=== PATIENT | male | born 1945 | race Caucasian/White ===

== ENCOUNTER 2017-01-06 15:39 | Emergency (ER) | payer MEDICARE, BC ==
[2017-01-06 16:00] VITALS: RESP 20; TEMP 97.5
[2017-01-06] MEDS ORDERED: APAP/HYDROCODONE 325/5 TAB PO ONE (16:53)
[2017-01-06] MEDS ORDERED: APAP/HYDROCODONE 325/5 TAB ONE (17:00)
[2017-01-06 17:33] VITALS: BP 137/104; PULSE 80; O2SAT 94
== END 2017-01-06 17:20 | disposition home or self-care (01) | DRG 185 ==
LOC: ED 15:39
DX: S22.42XA Multiple fractures of ribs, left side, initial encounter for closed fracture (principal); W18.30XA Fall on same level, unspecified, initial encounter
CPT/HCPCS: 71101; 99283

== ENCOUNTER 2018-01-30 02:34 | Emergency (ER) | payer MEDICARE, BC, OTHER ==
[2018-01-30 02:52] VITALS: RESP 18
[2018-01-30 03:38] LABS: INR 3.04 (0.86-1.12)
[2018-01-30] MEDS ORDERED: PROPARACAINE HCL 0.5% OPHTHALMIC SOL ONE (04:31)
[2018-01-30] MEDS ORDERED: PROPARACAINE HCL 0.5% OPHTHALMIC SOL OP ONE (04:37)
[2018-01-30] MEDS ORDERED: METOPROLOL TARTRATE 5 MG/5 ML SOL IV ONE ×2 (04:41→04:42)
[2018-01-30 04:57] VITALS: TEMP 97.6
[2018-01-30 05:37] VITALS: PULSE 79
[2018-01-30 05:38] VITALS: BP 180/102; O2SAT 95
== END 2018-01-30 05:30 | disposition home or self-care (01) | DRG 125 ==
LOC: ED 02:34
DX: S01.112A Laceration without foreign body of left eyelid and periocular area, initial encounter (principal); Z79.01 Long term (current) use of anticoagulants
CPT/HCPCS: 36415; 70450; 85610; 99283; A9270-GY; J3490

== ENCOUNTER 2018-03-08 19:21 | Inpatient (IN) | payer OTHER, MEDICARE, BC ==
[2018-03-08 20:03] LABS: BASOPHILS % (AUTO) 1 % (0-3); EOSINOPHILS % (AUTO) 0 % (0-9); HEMATOCRIT 39 % (39-53); HEMOGLOBIN 13.5 gm/dl (13.5-17.7); MEAN CORPUSCULAR HEMOGLOBIN 31.3 pg (27.0-32.0); MEAN CORPUSCULAR VOLUME 89 fL (80-100); MONOCYTES % (AUTO) 9.3 % (0-12); NEUTROPHILS % (AUTO) 82.6 % (37-80)
[2018-03-08 20:21] LABS: ALBUMIN 2.8 gm/dl (3.4-5.0); BILIRUBIN,TOTAL 0.4 mg/dl (0.2-1.0); CALCIUM 8.4 mg/dl (8.5-10.1); CARBON DIOXIDE 29.2 mEq/L (21-32); CREATININE 2.01 mg/dl (0.80-1.30); POTASSIUM 3.9 mMol/L (3.5-5.1); TOTAL PROTEIN 7.3 gm/dl (6.4-8.2); TROP I 0.039 ng/ml (0.000-0.056)
[2018-03-08 21:11] LABS: INR 2.73 (0.86-1.12)
[2018-03-08] MEDS ORDERED: FUROSEMIDE 20mg SOL IV ONE ×2 (21:11→22:30)
[2018-03-08] MEDS ORDERED: FUROSEMIDE 20mg SOL ONE (21:16)
[2018-03-08] MEDS ORDERED: FUROSEMIDE 20 MG TAB PO PRN (21:21)
[2018-03-08] MEDS ORDERED: ALBUTEROL HFA 60 PUFF/INHALER INH PRN (21:21)
[2018-03-08] MEDS: SIMVASTATIN 20 MG TAB PO SCH (22:34)
[2018-03-08] MEDS: LISINOPRIL 20 MG TAB PO SCH (22:34)
[2018-03-08] MEDS: METOPROLOL TARTRATE 50 MG TAB PO SCH (22:34)
[2018-03-08] MEDS: CITALOPRAM 20 MG TAB PO SCH (22:35)
[2018-03-08] MEDS: DIGOXIN 0.125 MG TAB PO SCH (22:35)
[2018-03-08] MEDS: LORATADINE 10 MG TAB PO SCH (22:35)
[2018-03-08] MEDS: INSULIN GLARGINE, RECOMBINAN 100 U/ML SOL SC SCH (22:39)
[2018-03-08] MEDS: SODIUM CHLORIDE 0.9% 1000ML 1,000 ML IV SCH (22:41)
[2018-03-09 07:23] LABS: BASOPHILS % (AUTO) 1 % (0-3); EOSINOPHILS % (AUTO) 1 % (0-9); HEMATOCRIT 39 % (39-53); HEMOGLOBIN 13.5 gm/dl (13.5-17.7); LYMPHOCYTES % (AUTO) 8.55 % (10-50); MEAN CORPUSCULAR HEMOGLOBIN 31.9 pg (27.0-32.0); MEAN CORPUSCULAR VOLUME 91 fL (80-100); MONOCYTES % (AUTO) 13.6 % (0-12); NEUTROPHILS % (AUTO) 76.3 % (37-80)
[2018-03-09 07:35] LABS: APPEARANCE,URINE Clear; BILIRUBIN,URINE NEGATIVE (NEGATIVE); COLOR,URINE Yellow; GLUCOSE, URINE (UA) NEGATIVE (NEGATIVE); KETONES,URINE NEGATIVE (NEGATIVE); LEUKOCYTE ESTERASE ,URINE NEGATIVE (NEGATIVE); NITRATE,URINE NEGATIVE (NEGATIVE); OCCULT BLOOD,URINE 2+ (NEG-TRACE); UROBILINOGEN,URINE 0.2 (0.2-1.0 EU)
[2018-03-09 07:36] LABS: DIGOXIN 1.3 ng/ml (0.9-2.0); TROP I 0.067 ng/ml (0.000-0.056)
[2018-03-09 07:54] LABS: BACTERIA TRACE (< 1+); CRYSTALS NEGATIVE (0-3 AVE/HPF); EPITHELIAL CELLS 0-1 (SQUAMOUS); WBC,URINE NEGATIVE (0-5AV/HPF)
[2018-03-09] MEDS ORDERED: METFORMIN HYDROCHLORIDE 500 MG TAB PO SCH (09:00)
[2018-03-09] MEDS ORDERED: MULTI INGREDIENT TOP SCH (09:00)
[2018-03-09] MEDS ORDERED: FUROSEMIDE 40 MG TAB PO SCH (09:00)
[2018-03-09] MEDS: ASPIRIN 81 MG CHEWABLE CTB PO SCH (09:40)
[2018-03-09] MEDS: HYDRALAZINE HCL 25 MG TAB PO SCH ×3 (09:41→21:25)
[2018-03-09] MEDS: METOPROLOL TARTRATE 50 MG TAB PO SCH ×2 (09:42→21:26)
[2018-03-09] MEDS: FUROSEMIDE 20 MG TAB PO SCH (09:42)
[2018-03-09] MEDS: LISINOPRIL 20 MG TAB PO SCH ×2 (09:43→21:26)
[2018-03-09] MEDS: FUROSEMIDE 40 MG TAB PO SCH (09:44)
[2018-03-09] MEDS ORDERED: MULTI INGREDIENT TOP PRN (09:54)
[2018-03-09] MEDS: INSULIN GLARGINE, RECOMBINAN 100 U/ML SOL SC SCH ×2 (10:55→21:28)
[2018-03-09] MEDS: TIOTROPIUM BROMIDE 18 MCG CAP INH SCH (10:55)
[2018-03-09] MEDS: SODIUM CHLORIDE 0.9% 1000ML 1,000 ML IV SCH (14:34)
[2018-03-09] MEDS ORDERED: WARFARIN SODIUM 5 MG TAB PO SCH (17:00)
[2018-03-09] MEDS: WARFARIN SODIUM 7.5 MG TAB PO SCH (17:42)
[2018-03-09] MEDS: FISH OIL 500 MG CAP PO SCH (21:23)
[2018-03-09] MEDS: SODIUM CHLORIDE 0.9% FLUSH 10 ML SOL IV SCH (21:23)
[2018-03-09] MEDS: CITALOPRAM 20 MG TAB PO SCH (21:25)
[2018-03-09] MEDS: LORATADINE 10 MG TAB PO SCH (21:25)
[2018-03-09] MEDS: SIMVASTATIN 20 MG TAB PO SCH (21:26)
[2018-03-09] MEDS: DIGOXIN 0.125 MG TAB PO SCH (21:27)
[2018-03-10] MEDS: SODIUM CHLORIDE 0.9% FLUSH 10 ML SOL IV SCH ×3 (06:18→20:46)
[2018-03-10 07:27] LABS: INR 2.2 (0.86-1.12)
[2018-03-10 07:33] LABS: CALCIUM 8.5 mg/dl (8.5-10.1); CARBON DIOXIDE 28.3 mEq/L (21-32); CREATININE 1.83 mg/dl (0.80-1.30); POTASSIUM 3.6 mMol/L (3.5-5.1); TROP I 0.084 ng/ml (0.000-0.056)
[2018-03-10] MEDS: HYDRALAZINE HCL 25 MG TAB PO SCH ×3 (08:21→20:46)
[2018-03-10] MEDS: ASPIRIN 81 MG CHEWABLE CTB PO SCH (08:21)
[2018-03-10] MEDS: METOPROLOL TARTRATE 50 MG TAB PO SCH ×2 (08:21→20:48)
[2018-03-10] MEDS: INSULIN GLARGINE, RECOMBINAN 100 U/ML SOL SC SCH ×2 (08:22→20:49)
[2018-03-10] MEDS: LISINOPRIL 20 MG TAB PO SCH ×2 (08:23→20:47)
[2018-03-10] MEDS: TIOTROPIUM BROMIDE 18 MCG CAP INH SCH (09:53)
[2018-03-10] MEDS: AMLODIPINE 5 MG TAB PO SCH (09:55)
[2018-03-10] MEDS: FUROSEMIDE 40 MG TAB PO SCH (10:05)
[2018-03-10] MEDS ORDERED: AMLODIPINE 5 MG TAB PO ONE ×2 (13:46→16:49)
[2018-03-10] MEDS: FUROSEMIDE 20 MG TAB PO SCH (13:57)
[2018-03-10] MEDS: WARFARIN SODIUM 7.5 MG TAB PO SCH (17:17)
[2018-03-10] MEDS: FISH OIL 500 MG CAP PO SCH (20:46)
[2018-03-10] MEDS: DIGOXIN 0.125 MG TAB PO SCH (20:47)
[2018-03-10] MEDS: SIMVASTATIN 20 MG TAB PO SCH (20:48)
[2018-03-10] MEDS: CITALOPRAM 20 MG TAB PO SCH (20:48)
[2018-03-10] MEDS: LORATADINE 10 MG TAB PO SCH (20:48)
[2018-03-11] MEDS: SODIUM CHLORIDE 0.9% FLUSH 10 ML SOL IV SCH ×3 (06:36→21:22)
[2018-03-11] MEDS: FUROSEMIDE 40 MG TAB PO SCH (09:55)
[2018-03-11] MEDS: HYDRALAZINE HCL 25 MG TAB PO SCH ×3 (09:55→21:34)
[2018-03-11] MEDS: INSULIN GLARGINE, RECOMBINAN 100 U/ML SOL SC SCH ×3 (09:56→21:47)
[2018-03-11] MEDS: TIOTROPIUM BROMIDE 18 MCG CAP INH SCH (09:56)
[2018-03-11] MEDS: METOPROLOL TARTRATE 50 MG TAB PO SCH ×2 (09:58→21:22)
[2018-03-11] MEDS: LISINOPRIL 20 MG TAB PO SCH ×2 (09:58→21:19)
[2018-03-11] MEDS: AMLODIPINE 5 MG TAB PO SCH ×2 (09:59→20:31)
[2018-03-11] MEDS: ASPIRIN 81 MG CHEWABLE CTB PO SCH (09:59)
[2018-03-11] MEDS ORDERED: TRAMADOL HYDROCHLORIDE 50 MG TAB PO PRN (18:23)
[2018-03-11] MEDS: WARFARIN SODIUM 7.5 MG TAB PO SCH (18:53)
[2018-03-11 20:03] LABS: BASOPHILS % (AUTO) 1 % (0-3); EOSINOPHILS % (AUTO) 0 % (0-9); HEMATOCRIT 43 % (39-53); LYMPHOCYTES % (AUTO) 7.27 % (10-50); MEAN CORPUSCULAR HEMOGLOBIN 30.9 pg (27.0-32.0); MEAN CORPUSCULAR HGB CONC 34.7 gm/dl (32.0-36.0); MEAN CORPUSCULAR VOLUME 89 fL (80-100); MONOCYTES % (AUTO) 12.3 % (0-12); NEUTROPHILS % (AUTO) 79.4 % (37-80)
[2018-03-11 20:15] LABS: CALCIUM 8.5 mg/dl (8.5-10.1); CREATININE 2.05 mg/dl (0.80-1.30)
[2018-03-11 20:22] LABS: POTASSIUM 3.8 mMol/L (3.5-5.1)
[2018-03-11 20:38] LABS: APPEARANCE,URINE Clear; BILIRUBIN,URINE NEGATIVE (NEGATIVE); GLUCOSE, URINE (UA) TRACE (NEGATIVE); KETONES,URINE NEGATIVE (NEGATIVE); LEUKOCYTE ESTERASE ,URINE NEGATIVE (NEGATIVE); NITRATE,URINE NEGATIVE (NEGATIVE); OCCULT BLOOD,URINE 2+ (NEG-TRACE); PH,URINE 6.5
[2018-03-11 20:52] LABS: COLOR,URINE Dark Yellow; CRYSTALS NEGATIVE (0-3 AVE/HPF); EPITHELIAL CELLS 0-2 (SQUAMOUS)
[2018-03-11 20:53] LABS: BACTERIA TRACE (< 1+)
[2018-03-11] MEDS: DIGOXIN 0.125 MG TAB PO SCH (21:19)
[2018-03-11] MEDS: FISH OIL 500 MG CAP PO SCH (21:21)
[2018-03-11] MEDS: CITALOPRAM 20 MG TAB PO SCH (21:21)
[2018-03-11] MEDS: SIMVASTATIN 20 MG TAB PO SCH (21:21)
[2018-03-11] MEDS: LORATADINE 10 MG TAB PO SCH (21:21)
[2018-03-11] MEDS: ACETAMINOPHEN 500 MG 500 MG TAB PO SCH (21:24)
[2018-03-11] MEDS ORDERED: SODIUM CHLORIDE 0.9% 500 ML 500 ML IV ONE (22:00)
[2018-03-12] MEDS: SODIUM CHLORIDE 0.9% FLUSH 10 ML SOL IV SCH ×3 (04:30→20:35)
[2018-03-12 08:05] LABS: CALCIUM 8.7 mg/dl (8.5-10.1); CREATININE 2.06 mg/dl (0.80-1.30)
[2018-03-12 08:06] LABS: BASOPHILS % (AUTO) 1 % (0-3); EOSINOPHILS % (AUTO) 1 % (0-9); HEMATOCRIT 42 % (39-53); MEAN CORPUSCULAR HEMOGLOBIN 32.1 pg (27.0-32.0); MEAN CORPUSCULAR HGB CONC 35.9 gm/dl (32.0-36.0); MEAN CORPUSCULAR VOLUME 90 fL (80-100); MONOCYTES % (AUTO) 11.3 % (0-12); NEUTROPHILS % (AUTO) 75.9 % (37-80)
[2018-03-12] MEDS: HYDRALAZINE HCL 25 MG TAB PO SCH ×4 (10:08→20:45)
[2018-03-12] MEDS: ASPIRIN 81 MG CHEWABLE CTB PO SCH (10:09)
[2018-03-12] MEDS: METOPROLOL TARTRATE 50 MG TAB PO SCH ×2 (10:10→20:34)
[2018-03-12] MEDS: FUROSEMIDE 40 MG TAB PO SCH ×2 (10:10)
[2018-03-12] MEDS: AMLODIPINE 5 MG TAB PO SCH (10:11)
[2018-03-12] MEDS: LISINOPRIL 20 MG TAB PO SCH ×2 (10:13→20:35)
[2018-03-12] MEDS: TIOTROPIUM BROMIDE 18 MCG CAP INH SCH (10:14)
[2018-03-12] MEDS: ACETAMINOPHEN 500 MG 500 MG TAB PO SCH ×3 (10:20→20:35)
[2018-03-12] MEDS: INSULIN GLARGINE, RECOMBINAN 100 U/ML SOL SC SCH ×2 (10:25→20:45)
[2018-03-12] MEDS ORDERED: MAGNESIUM HYDROXIDE 30 ML SUS PO PRN (12:35)
[2018-03-12] MEDS ORDERED: HYDRALAZINE HYDROCHLORIDE 10 MG TAB ONE (14:46)
[2018-03-12] MEDS ORDERED: NOVOLOG FLEXPEN SC SCH (16:30)
[2018-03-12] MEDS: WARFARIN SODIUM 7.5 MG TAB PO SCH (18:03)
[2018-03-12] MEDS: NOVOLOG FLEXPEN SC SCH ×2 (18:04→20:44)
[2018-03-12] MEDS: LORATADINE 10 MG TAB PO SCH (20:34)
[2018-03-12] MEDS: FISH OIL 500 MG CAP PO SCH (20:35)
[2018-03-12] MEDS: DIGOXIN 0.125 MG TAB PO SCH (20:36)
[2018-03-12] MEDS: SIMVASTATIN 20 MG TAB PO SCH (20:36)
[2018-03-12] MEDS: CITALOPRAM 20 MG TAB PO SCH (20:38)
[2018-03-13] MEDS: SODIUM CHLORIDE 0.9% FLUSH 10 ML SOL IV SCH ×3 (04:50→20:37)
[2018-03-13] MEDS: NOVOLOG FLEXPEN SC SCH ×4 (06:35→20:37)
[2018-03-13 08:03] LABS: BASOPHILS % (AUTO) 1 % (0-3); EOSINOPHILS % (AUTO) 1 % (0-9); HEMATOCRIT 40 % (39-53); MEAN CORPUSCULAR HEMOGLOBIN 31.1 pg (27.0-32.0); MEAN CORPUSCULAR HGB CONC 34.9 gm/dl (32.0-36.0); MEAN CORPUSCULAR VOLUME 89 fL (80-100); MONOCYTES % (AUTO) 12.6 % (0-12); NEUTROPHILS % (AUTO) 74.3 % (37-80)
[2018-03-13 08:10] LABS: CALCIUM 8.5 mg/dl (8.5-10.1); CARBON DIOXIDE 26.1 mEq/L (21-32); CREATININE 2.11 mg/dl (0.80-1.30); POTASSIUM 4.1 mMol/L (3.5-5.1)
[2018-03-13 08:21] LABS: INR 2.47 (0.86-1.12)
[2018-03-13 08:53] LABS: HEMOGLOBIN A1C 7.9 % (4.8-6.0)
[2018-03-13] MEDS: ASPIRIN 81 MG CHEWABLE CTB PO SCH (08:55)
[2018-03-13] MEDS: METOPROLOL TARTRATE 50 MG TAB PO SCH (08:56)
[2018-03-13] MEDS: TIOTROPIUM BROMIDE 18 MCG CAP INH SCH (08:57)
[2018-03-13] MEDS: LISINOPRIL 20 MG TAB PO SCH ×2 (08:58→20:36)
[2018-03-13] MEDS: FUROSEMIDE 40 MG TAB PO SCH (09:00)
[2018-03-13] MEDS: AMLODIPINE 5 MG TAB PO SCH (09:00)
[2018-03-13] MEDS: HYDRALAZINE HCL 25 MG TAB PO SCH ×5 (09:01→20:37)
[2018-03-13] MEDS: ACETAMINOPHEN 500 MG 500 MG TAB PO SCH ×3 (09:04→20:37)
[2018-03-13] MEDS: INSULIN GLARGINE, RECOMBINAN 100 U/ML SOL SC SCH ×2 (09:04→20:37)
[2018-03-13] MEDS: WARFARIN SODIUM 7.5 MG TAB PO SCH (17:45)
[2018-03-13] MEDS: CARVEDILOL 3.125 MG TAB PO SCH (17:47)
[2018-03-13] MEDS: LORATADINE 10 MG TAB PO SCH (20:35)
[2018-03-13] MEDS: SIMVASTATIN 20 MG TAB PO SCH (20:36)
[2018-03-13] MEDS: DIGOXIN 0.125 MG TAB PO SCH (20:36)
[2018-03-13] MEDS: CITALOPRAM 20 MG TAB PO SCH (20:36)
[2018-03-13] MEDS: FISH OIL 500 MG CAP PO SCH (20:37)
[2018-03-14] MEDS: SODIUM CHLORIDE 0.9% FLUSH 10 ML SOL IV SCH ×3 (04:46→21:13)
[2018-03-14] MEDS: NOVOLOG FLEXPEN SC SCH ×4 (06:21→21:16)
[2018-03-14 07:36] LABS: INR 2.55 (0.86-1.12)
[2018-03-14] MEDS: FUROSEMIDE 40 MG TAB PO SCH (09:05)
[2018-03-14] MEDS: TIOTROPIUM BROMIDE 18 MCG CAP INH SCH (09:05)
[2018-03-14] MEDS: AMLODIPINE 5 MG TAB PO SCH (09:05)
[2018-03-14] MEDS: HYDRALAZINE HCL 25 MG TAB PO SCH ×4 (09:07→21:03)
[2018-03-14] MEDS: ASPIRIN 81 MG CHEWABLE CTB PO SCH (09:08)
[2018-03-14] MEDS: ACETAMINOPHEN 500 MG 500 MG TAB PO SCH ×3 (09:10→21:05)
[2018-03-14] MEDS: CARVEDILOL 3.125 MG TAB PO SCH (09:10)
[2018-03-14] MEDS: INSULIN GLARGINE, RECOMBINAN 100 U/ML SOL SC SCH ×2 (09:13→21:19)
[2018-03-14 09:25] VITALS: RESP 20
[2018-03-14] MEDS: LISINOPRIL 20 MG TAB PO SCH (10:51)
[2018-03-14] MEDS ORDERED: WARFARIN SODIUM 5 MG TAB PO SCH (17:00)
[2018-03-14] MEDS: CARVEDILOL 12.5 MG TAB PO SCH (17:37)
[2018-03-14] MEDS: LORATADINE 10 MG TAB PO SCH ×2 (21:03→21:11)
[2018-03-14] MEDS: FISH OIL 500 MG CAP PO SCH (21:03)
[2018-03-14] MEDS: CITALOPRAM 20 MG TAB PO SCH (21:03)
[2018-03-14] MEDS: SIMVASTATIN 20 MG TAB PO SCH (21:05)
[2018-03-14] MEDS: DIGOXIN 0.125 MG TAB PO SCH (21:06)
[2018-03-15] MEDS: NOVOLOG FLEXPEN SC SCH ×2 (06:48→12:03)
[2018-03-15] MEDS: SODIUM CHLORIDE 0.9% FLUSH 10 ML SOL IV SCH ×2 (06:52→13:07)
[2018-03-15 07:19] LABS: CALCIUM 8.8 mg/dl (8.5-10.1); CARBON DIOXIDE 26.4 mEq/L (21-32); CREATININE 2.05 mg/dl (0.80-1.30); POTASSIUM 4.3 mMol/L (3.5-5.1)
[2018-03-15 07:34] LABS: INR 2.43 (0.86-1.12)
[2018-03-15 08:32] VITALS: BP 147/90; PULSE 77; TEMP 97.4; O2SAT 97
[2018-03-15] MEDS: ASPIRIN 81 MG CHEWABLE CTB PO SCH (08:34)
[2018-03-15] MEDS: FUROSEMIDE 40 MG TAB PO SCH (08:35)
[2018-03-15] MEDS: CARVEDILOL 12.5 MG TAB PO SCH (08:35)
[2018-03-15] MEDS: AMLODIPINE 5 MG TAB PO SCH (08:35)
[2018-03-15] MEDS: HYDRALAZINE HCL 25 MG TAB PO SCH ×2 (08:35→13:06)
[2018-03-15] MEDS: ACETAMINOPHEN 500 MG 500 MG TAB PO SCH ×2 (08:36→13:55)
[2018-03-15] MEDS: TIOTROPIUM BROMIDE 18 MCG CAP INH SCH (08:36)
[2018-03-15] MEDS: INSULIN GLARGINE, RECOMBINAN 100 U/ML SOL SC SCH (08:37)
== END 2018-03-15 16:20 | disposition home or self-care (01) | DRG 946 ==
LOC: ED 19:21 → ACUTE CARE 21:07
PROVIDERS: ADMIT Family Medicine; ATTEND Family Medicine
PROC: F01L5YZ Range of Motion and Joint Integrity Assessment of Musculoskeletal System - Lower Back / Lower Extremity using Other Equipment (ICD-10-PCS; principal; 2018-03-09)
PROC: F01ZDFZ Gait and/or Balance Assessment using Assistive, Adaptive, Supportive or Protective Equipment (ICD-10-PCS; 2018-03-09)
PROC: F01ZBFZ Bed Mobility Assessment using Assistive, Adaptive, Supportive or Protective Equipment (ICD-10-PCS; 2018-03-09)
DX: R53.1 Weakness (principal); I50.9 Heart failure, unspecified; I48.91 Unspecified atrial fibrillation; E83.51 Hypocalcemia; D72.829 Elevated white blood cell count, unspecified; E11.9 Type 2 diabetes mellitus without complications; Z79.01 Long term (current) use of anticoagulants; Z79.4 Long term (current) use of insulin; I99.9 Unspecified disorder of circulatory system; I10 Essential (primary) hypertension; E78.5 Hyperlipidemia, unspecified; J44.9 Chronic obstructive pulmonary disease, unspecified; I73.9 Peripheral vascular disease, unspecified
CPT/HCPCS: 36415; 71045; 80048; 80053; 80162; 81001; 82550; 82962; 83036; 83880; 84484; 85025; 85610; 85651; 93005; 93012; 93306; 93925; 99222; 99283; J1817; J1940; A9270; A9270-GY; J1815

== ENCOUNTER 2018-07-31 20:14 | Emergency (ER) | payer MEDICARE, BC, OTHER ==
[2018-07-31] MEDS: SODIUM CHLORIDE 0.9% FLUSH 10 ML SOL IV PRN ×2 (20:20→23:00)
[2018-07-31] MEDS ORDERED: ALBUTEROL/IPRATROPIUM 1 VIAL SOL INH ONE (20:20)
[2018-07-31] MEDS ORDERED: ALBUTEROL/IPRATROPIUM 1 VIAL SOL ONE (20:20)
[2018-07-31] MEDS ORDERED: LORAZEPAM 2 MG/ML SOL ONE ×2 (20:22→21:25)
[2018-07-31] MEDS: LORAZEPAM 2 MG/ML 10ML MDV 2 MG/ML VIAL IV PRN ×2 (20:25→21:33)
[2018-07-31] MEDS: EPINEPHRINE HCL 0.1 MG/ML SOL IV PRN ×3 (20:30→20:44)
[2018-07-31 20:59] LABS: BASOPHILS % (AUTO) 2 % (0-3); EOSINOPHILS % (AUTO) 2 % (0-9); HEMATOCRIT 45 % (39-53); HEMOGLOBIN 14.5 gm/dl (13.5-17.7); LYMPHOCYTES % (AUTO) 29.7 % (10-50); MEAN CORPUSCULAR HEMOGLOBIN 31.5 pg (27.0-32.0); MEAN CORPUSCULAR HGB CONC 32.2 gm/dl (32.0-36.0); MEAN CORPUSCULAR VOLUME 98 fL (80-100); MONOCYTES % (AUTO) 8.4 % (0-12); NEUTROPHILS % (AUTO) 58.3 % (37-80)
[2018-07-31] MEDS ORDERED: FUROSEMIDE 40 MG SOL IV ONE (21:00)
[2018-07-31 21:10] LABS: ALBUMIN 2.9 gm/dl (3.4-5.0); BILIRUBIN,TOTAL 0.7 mg/dl (0.2-1.0); CALCIUM 7.7 mg/dl (8.5-10.1); CARBON DIOXIDE 24.2 mEq/L (21-32); CREATININE 2.57 mg/dl (0.80-1.30); POTASSIUM 4.6 mMol/L (3.5-5.1)
[2018-07-31] MEDS ORDERED: FUROSEMIDE 100 MG SOL ONE (21:10)
[2018-07-31 21:30] LABS: TOTAL PROTEIN 7.8 gm/dl (6.4-8.2)
[2018-07-31 21:32] LABS: INR 4.64 (0.86-1.12)
[2018-07-31] MEDS ORDERED: SODIUM CHLORIDE 0.9% 1000ML 1,000 ML IV ONE (21:50)
[2018-08-01 05:27] VITALS: BP 134/63; PULSE 57; RESP 25; TEMP 98.2; O2SAT 87
[2018-08-01] MEDS ORDERED: EPINEPHRINE 1:10,000 PREFILL 0.1 MG/ML SOL ONE (05:42)
== END 2018-07-31 23:10 | disposition short-term general hospital (02) | DRG 298 ==
LOC: ED 20:14
DX: I46.9 Cardiac arrest, cause unspecified (principal)
CPT/HCPCS: 36415; 71045; 80053; 84484; 85025; 85610; 92950; 93005; 96365; 96374; 96375; 99291; 99292; J1940; J2060

== ENCOUNTER 2018-09-26 19:58 | Emergency (ER) | payer MEDICARE, BC, OTHER ==
[2018-09-26] MEDS ORDERED: ALBUTEROL/IPRATROPIUM 1 VIAL SOL ONE (20:02)
[2018-09-26] MEDS ORDERED: SOLUMEDROL 125 MG/2 ML 125 MG/2 ML PDS ONE (20:20)
[2018-09-26] MEDS ORDERED: SOLUMEDROL 125 MG/2 ML 125 MG/2 ML PDS IV ONE (20:22)
[2018-09-26] MEDS ORDERED: SODIUM CHLORIDE 0.9% FLUSH 10 ML SOL IV PRN (20:23)
[2018-09-26 20:25] LABS: ABG PH 7.41 (7.35-7.45)
[2018-09-26] MEDS ORDERED: LORAZEPAM 2 MG/ML SOL IV ONE (20:31)
[2018-09-26 20:32] LABS: BASOPHILS % (AUTO) 1 % (0-3); EOSINOPHILS % (AUTO) 2 % (0-9); HEMATOCRIT 43 % (39-53); HEMOGLOBIN 13.7 gm/dl (13.5-17.7); LYMPHOCYTES % (AUTO) 10.1 % (10-50); MEAN CORPUSCULAR HEMOGLOBIN 29.6 pg (27.0-32.0); MEAN CORPUSCULAR HGB CONC 31.9 gm/dl (32.0-36.0); MEAN CORPUSCULAR VOLUME 93 fL (80-100); NEUTROPHILS % (AUTO) 79.2 % (37-80)
[2018-09-26] MEDS ORDERED: ALBUTEROL/IPRATROPIUM 1 VIAL SOL INH ONE (20:33)
[2018-09-26 20:34] LABS: LACTIC ACID 1.6 mMol/L (0.0-2.0)
[2018-09-26 20:39] LABS: CALCIUM 8.4 mg/dl (8.5-10.1); CARBON DIOXIDE 27.3 mEq/L (21-32); CREATININE 1.82 mg/dl (0.80-1.30); POTASSIUM 3.6 mMol/L (3.5-5.1)
[2018-09-26 20:47] LABS: INR 1.95 (0.86-1.12)
[2018-09-26] MEDS ORDERED: LORAZEPAM 2 MG/ML SOL ONE (21:22)
[2018-09-26 21:48] LABS: APPEARANCE,URINE Slightly Cloudy; BILIRUBIN,URINE NEGATIVE (NEGATIVE); COLOR,URINE Yellow; GLUCOSE, URINE (UA) TRACE (NEGATIVE); KETONES,URINE NEGATIVE (NEGATIVE); LEUKOCYTE ESTERASE ,URINE NEGATIVE (NEGATIVE); NITRATE,URINE NEGATIVE (NEGATIVE); OCCULT BLOOD,URINE 2+ (NEG-TRACE); PH,URINE 5.5; UROBILINOGEN,URINE 0.2 (0.2-1.0 EU)
[2018-09-26 21:55] LABS: RBC,URINE 0-3 (0-3AV/HPF)
[2018-09-26 21:56] LABS: BACTERIA NEGATIVE (< 1+); CRYSTALS 1+ AMORPH URATES (0-3 AVE/HPF); EPITHELIAL CELLS 0-2 (SQUAMOUS); WBC,URINE NEG (0-5AV/HPF)
[2018-09-26] MEDS ORDERED: SODIUM CHLORIDE 0.9% 1000ML 1,000 ML IV SCH (23:00)
[2018-09-26] MEDS ORDERED: SODIUM CHLORIDE 0.9% 500 ML 500 ML IV ONE (23:20)
[2018-09-26] MEDS ORDERED: ACETAMINOPHEN 325 MG PO ONE (23:32)
[2018-09-26] MEDS ORDERED: ACETAMINOPHEN 325 MG ONE (23:33)
[2018-09-27 00:16] VITALS: TEMP 98.6
[2018-09-27 00:20] VITALS: BP 133/97; PULSE 99
[2018-09-27 01:18] VITALS: RESP 16; O2SAT 93
== END 2018-09-27 00:45 | disposition short-term general hospital (02) | DRG 189 ==
LOC: ED 19:58
DX: J96.00 Acute respiratory failure, unspecified whether with hypoxia or hypercapnia (principal); Z79.01 Long term (current) use of anticoagulants; E11.9 Type 2 diabetes mellitus without complications; I48.91 Unspecified atrial fibrillation
CPT/HCPCS: 36415; 36600; 71045; 71275; 80048; 81001; 82803; 85025; 85378; 85610; 87040; 93005; 96365; 96374; 96375; 99291; J2060; J2930; Q9967

== ENCOUNTER 2019-04-29 21:19 | Inpatient (IN) | payer OTHER, BC ==
[2019-04-29] MEDS: SODIUM CHLORIDE 0.9% FLUSH 10 ML SOL IV PRN (21:35)
[2019-04-29 21:51] LABS: LACTIC ACID 2.4 mMol/L (0.0-2.0)
[2019-04-29 21:53] LABS: BASOPHILS % (AUTO) 1 % (0-3); EOSINOPHILS % (AUTO) 4 % (0-9); HEMATOCRIT 47 % (39-53); HEMOGLOBIN 15.2 gm/dl (13.5-17.7); LYMPHOCYTES % (AUTO) 14.5 % (10-50); MEAN CORPUSCULAR HEMOGLOBIN 30.8 pg (27.0-32.0); MEAN CORPUSCULAR HGB CONC 32.5 gm/dl (32.0-36.0); MEAN CORPUSCULAR VOLUME 95 fL (80-100); MONOCYTES % (AUTO) 10.3 % (0-12); NEUTROPHILS % (AUTO) 70.5 % (37-80)
[2019-04-29 21:56] LABS: INR 2.09 (0.87-1.13)
[2019-04-29 22:04] LABS: BLOOD UREA NITROGEN 49 mg/dl (7-18); CALCIUM 8.3 mg/dl (8.5-10.1); CARBON DIOXIDE 26.6 mEq/L (21-32); CHLORIDE 103 mMol/L (98-107); CREATINE KINASE 204 U/L (39-308); GLUCOSE 177 mg/dl (74-106); TROP I < 0.017 ng/ml (0.000-0.056)
[2019-04-29 22:29] LABS: APPEARANCE,URINE Clear; BILIRUBIN,URINE NEGATIVE (NEGATIVE); COLOR,URINE Yellow; GLUCOSE, URINE (UA) NEGATIVE (NEGATIVE); KETONES,URINE NEGATIVE (NEGATIVE); LEUKOCYTE ESTERASE ,URINE NEGATIVE (NEGATIVE); NITRATE,URINE NEGATIVE (NEGATIVE); OCCULT BLOOD,URINE 1+ (NEG-TRACE); PH,URINE 5.5; UROBILINOGEN,URINE 0.2 (0.2-1.0 EU)
[2019-04-29 22:42] LABS: BACTERIA 1+ (< 1+); CRYSTALS NEGATIVE (0-3 AVE/HPF); EPITHELIAL CELLS 0-4 (SQUAMOUS); WBC,URINE 0-1 (0-5AV/HPF)
[2019-04-30] MEDS ORDERED: WARFARIN SODIUM 5 MG TAB PO SCH ×2 (00:05→18:00)
[2019-04-30] MEDS ORDERED: TORSEMIDE 20 MG TAB PO PRN (00:06)
[2019-04-30] MEDS: CITALOPRAM 20 MG TAB PO SCH ×2 (01:10→20:32)
[2019-04-30] MEDS: SIMVASTATIN 20 MG TAB PO SCH ×2 (01:10→20:33)
[2019-04-30] MEDS: CARVEDILOL 12.5 MG TAB PO SCH ×3 (01:11→17:35)
[2019-04-30] MEDS: AMLODIPINE 5 MG TAB PO SCH ×2 (01:11→17:35)
[2019-04-30] MEDS: SODIUM CHLORIDE 0.9% 1000ML 1,000 ML IV SCH ×2 (01:13→20:33)
[2019-04-30 07:52] LABS: CALCIUM 8.2 mg/dl (8.5-10.1); CARBON DIOXIDE 28.5 mEq/L (21-32); CREATININE 2.03 mg/dl (0.80-1.30)
[2019-04-30 07:54] LABS: BASOPHILS % (AUTO) 1 % (0-3); EOSINOPHILS % (AUTO) 3 % (0-9); HEMATOCRIT 44 % (39-53); LYMPHOCYTES % (AUTO) 14.8 % (10-50); MEAN CORPUSCULAR HEMOGLOBIN 30.5 pg (27.0-32.0); MEAN CORPUSCULAR HGB CONC 31.6 gm/dl (32.0-36.0); MEAN CORPUSCULAR VOLUME 97 fL (80-100); MONOCYTES % (AUTO) 11.5 % (0-12); NEUTROPHILS % (AUTO) 69.1 % (37-80)
[2019-04-30] MEDS: NOVOLOG FLEXPEN SC SCH ×4 (08:07→20:34)
[2019-04-30 08:35] LABS: INR 1.93 (0.87-1.13)
[2019-04-30] MEDS ORDERED: POTASSIUM CHLORIDE 2 MEQ/ML 40 MEQ, LIDOCAINE HCL 1% MDV 2 ML in SODIUM CHLORIDE 0.9% 5... IV ONE (08:55)
[2019-04-30] MEDS ORDERED: POTASSIUM CHLORIDE 2 MEQ/ML SOL IV ONE (09:25)
[2019-04-30] MEDS ORDERED: LIDOCAINE HCL 1% MPF 30 SOL ONE (09:28)
[2019-04-30] MEDS: BUDESONIDE/FORMOTEROL 160/4.5 AER INH SCH ×2 (09:39→20:34)
[2019-04-30] MEDS: TIOTROPIUM BROMIDE 18 MCG CAP INH SCH (09:40)
[2019-04-30] MEDS: ASPIRIN 81 MG CHEWABLE CTB PO SCH (09:40)
[2019-04-30] MEDS: INSULIN GLARGINE, RECOMBINAN 100 U/ML SOL SC SCH (09:40)
[2019-04-30] MEDS: TORSEMIDE 20 MG TAB PO SCH (09:41)
[2019-04-30] MEDS ORDERED: WARFARIN SODIUM 7.5 MG TAB PO ONE (14:15)
[2019-04-30] MEDS ORDERED: FISH OIL 500 MG CAP PO SCH (21:00)
[2019-04-30] MEDS: ACETAMINOPHEN 500 MG 500 MG TAB PO PRN (23:12)
[2019-05-01] MEDS: SODIUM CHLORIDE 0.9% FLUSH 10 ML SOL IV PRN ×3 (05:13→20:31)
[2019-05-01 07:19] LABS: CALCIUM 8.3 mg/dl (8.5-10.1); CARBON DIOXIDE 26.9 mEq/L (21-32); CREATININE 1.82 mg/dl (0.80-1.30)
[2019-05-01 07:34] LABS: INR 2.02 (0.87-1.13)
[2019-05-01] MEDS: NOVOLOG FLEXPEN SC SCH ×4 (08:20→20:32)
[2019-05-01] MEDS: CARVEDILOL 12.5 MG TAB PO SCH ×2 (08:56→18:05)
[2019-05-01] MEDS: ASPIRIN 81 MG CHEWABLE CTB PO SCH (08:57)
[2019-05-01] MEDS: TIOTROPIUM BROMIDE 18 MCG CAP INH SCH (08:59)
[2019-05-01] MEDS: BUDESONIDE/FORMOTEROL 160/4.5 AER INH SCH ×2 (08:59→20:34)
[2019-05-01] MEDS: INSULIN GLARGINE, RECOMBINAN 100 U/ML SOL SC SCH (09:00)
[2019-05-01] MEDS: TORSEMIDE 10 MG TABLET PO SCH (09:04)
[2019-05-01] MEDS ORDERED: TORSEMIDE 10 MG TABLET PO PRN (09:15)
[2019-05-01] MEDS: TORSEMIDE 20 MG TAB PO SCH (10:00)
[2019-05-01] MEDS ORDERED: WARFARIN SODIUM 7.5 MG TAB PO SCH (18:00)
[2019-05-01] MEDS: AMLODIPINE 5 MG TAB PO SCH (18:04)
[2019-05-01] MEDS: SIMVASTATIN 20 MG TAB PO SCH (20:31)
[2019-05-01] MEDS: CITALOPRAM 20 MG TAB PO SCH (20:31)
[2019-05-01] MEDS: ACETAMINOPHEN 500 MG 500 MG TAB PO PRN (23:08)
[2019-05-02] MEDS: NOVOLOG FLEXPEN SC SCH ×4 (07:35→20:35)
[2019-05-02] MEDS: CARVEDILOL 12.5 MG TAB PO SCH ×2 (07:36→16:59)
[2019-05-02] MEDS: TORSEMIDE 10 MG TABLET PO SCH (08:45)
[2019-05-02] MEDS: ASPIRIN 81 MG CHEWABLE CTB PO SCH (08:45)
[2019-05-02] MEDS: BUDESONIDE/FORMOTEROL 160/4.5 AER INH SCH ×2 (08:46→20:22)
[2019-05-02] MEDS: INSULIN GLARGINE, RECOMBINAN 100 U/ML SOL SC SCH (08:47)
[2019-05-02] MEDS: TIOTROPIUM BROMIDE 18 MCG CAP INH SCH (08:47)
[2019-05-02] MEDS: SODIUM CHLORIDE 0.9% FLUSH 10 ML SOL IV PRN (10:55)
[2019-05-02] MEDS: AMLODIPINE 5 MG TAB PO SCH (17:00)
[2019-05-02] MEDS ORDERED: WARFARIN SODIUM 5 MG TAB PO SCH (18:00)
[2019-05-02] MEDS: CITALOPRAM 20 MG TAB PO SCH (20:21)
[2019-05-02] MEDS: SIMVASTATIN 20 MG TAB PO SCH (20:21)
[2019-05-02 23:39] VITALS: RESP 18
[2019-05-03 07:42] VITALS: O2SAT 96
[2019-05-03 07:51] VITALS: BP 143/89; PULSE 71; TEMP 97.5
[2019-05-03] MEDS: NOVOLOG FLEXPEN SC SCH (07:51)
[2019-05-03] MEDS: CARVEDILOL 12.5 MG TAB PO SCH (07:52)
[2019-05-03] MEDS: TIOTROPIUM BROMIDE 18 MCG CAP INH SCH (08:31)
[2019-05-03] MEDS: BUDESONIDE/FORMOTEROL 160/4.5 AER INH SCH (08:31)
[2019-05-03] MEDS: ASPIRIN 81 MG CHEWABLE CTB PO SCH (08:32)
[2019-05-03] MEDS: TORSEMIDE 10 MG TABLET PO SCH (08:33)
[2019-05-03] MEDS: INSULIN GLARGINE, RECOMBINAN 100 U/ML SOL SC SCH (08:34)
== END 2019-05-03 09:13 | DRG 684 ==
LOC: ED 21:19 → ACUTE CARE 22:56 → OBSVTOIN 05-01 08:30
PROVIDERS: ADMIT Family Medicine; ATTEND Family Medicine
PROC: F01ZDZZ Gait and/or Balance Assessment (ICD-10-PCS; principal; 2019-04-30)
PROC: F01ZBZZ Bed Mobility Assessment (ICD-10-PCS; 2019-04-30)
DX: N17.9 Acute kidney failure, unspecified (principal); R53.1 Weakness; N18.3 Chronic kidney disease, stage 3 (moderate); Z79.01 Long term (current) use of anticoagulants; I48.91 Unspecified atrial fibrillation; E11.9 Type 2 diabetes mellitus without complications; Z79.4 Long term (current) use of insulin; W18.30XA Fall on same level, unspecified, initial encounter; M21.371 Foot drop, right foot; I10 Essential (primary) hypertension
CPT/HCPCS: 36415; 70450; 80048; 81001; 82550; 82962; 83605; 83880; 84132; 84484; 85025; 85610; 87088; 93005; 93012; 94760; 99219; 99224; 99285; J1817; J3480; A6232; A9270-GY; J1815; J2001